=== PATIENT | female | born 1990 | race Caucasian/White ===

== ENCOUNTER → 2022-04-27 | Outpatient (CLI) | payer MEDICAID ==
[2022-04-27 10:30] LABS: HCT 37.2 % (37.2-46.3); HGB 12.7 g/dL (12.0-15.0); MCH 29.2 pg (27.0-32.0); MCHC 34.1 g/dL (32.0-37.0); MCV 85.5 fL (80.0-97.0); Mean Platelet Volume 10.1 fL (9.5-12.2); NRBC Per 100 WBC 0 /100 WBCS (0.0-0.0); Platelet Count 244 X 10*3/uL (140-440); RBC 4.35 X 10*6/uL (4.10-5.20); RDW 12.7 % (11.5-14.5); WBC 8.87 X 10*3/uL (4.50-10.00)
[2022-04-27 10:39] LABS: African American GFR (CKD) 142.8 (60.0-200.0); Non-African American GFR(CKD) 123.2 (60.0-200.0)
[2022-04-27 10:54] LABS: Hepatitis B Surface Antigen Nonreactive (Nonreactive)
[2022-04-27 13:06] LABS: HIV 2 AB Non-Reactive (Non-Reactive); HIV AB P24 Non-Reactive (Non-Reactive); HIV P24 AG Non-Reactive (Non-Reactive)
== END | disposition home or self-care (01) ==
LOC: LABWHC1 07:35
PROVIDERS: ATTEND Obstetrics & Gynecology
DX: Z34.81 Encounter for supervision of other normal pregnancy, first trimester (principal); Z3A.00 Weeks of gestation of pregnancy not specified
CPT/HCPCS: 36415; 82565; 82947; 85027; 86762; 86780; 86850; 86900; 86901; 87340; 87390

== ENCOUNTER → 2022-05-03 | Outpatient (CLI) | payer MEDICAID ==
--- NOTE | 2022-05-03 15:13 | US ---
EXAMINATION TYPE: Transabdominal DATE OF EXAM: 05/03/2022 2:34 PM COMPARISON: NONE CLINICAL HISTORY: Z36.89 Confirm dates/age/viability. Viability and dating. . EXAM PERFORMED: Transabdominal (TA) EXAM MEASUREMENTS: GESTATIONAL AGE / DATING Physician Established: Not yet established Dates by LMP: 01/28/22 (13 weeks/4 days) EDC: 11/04/22 Dates by First Scan: No previous this is first scan Dates by Current Scan for: (13 weeks/3 days) EDC: 11/05/22 MATERNAL ANATOMY Uterus: 11.2 x 10.4 x 7.8 cm Right Ovary: 3.6 x 2.6 x 2.6 cm Left Ovary: 2.7 x 2.3 x 1.7 cm Post CDS / Adnexa: WNL Presence of free fluid: No Presence of corpus luteal cyst: No Presence of subchorionic bleed: No GESTATION / SURVEY CRL: 7.3 cm (13 weeks/3 days) Heart Rate: 159 bpm Rhythm: Normal IUP: Viable IUP Age Appropriate Anatomy Limbs: Visualized Calvarium: Visualized Date of LMP: 01/28/22 Beta HcG (if available): Not available at this time IMPRESSION: Single viable intrauterine .
== END | disposition home or self-care (01) ==
LOC: RADUSWWP 14:02
PROVIDERS: ATTEND Obstetrics & Gynecology
DX: Z53.9 Procedure and treatment not carried out, unspecified reason (principal)
CPT/HCPCS: 76801

== ENCOUNTER 2023-11-28 13:51 | Outpatient (CLI) | payer OTHER ==
[2023-11-28 14:05] LABS: Glucose,Whole Blood 105 mg/dL (70-110)
[2023-11-28 15:32] VITALS: BP 109/74; PULSE 102; RESP 16; TEMP 97.6
--- NOTE | 2023-12-01 09:25 | P.MSEPDOC ---
Presenting Problems - Arrival Data Date of Arrival on Unit: 11/28/23 Time of Arrival on Unit: 13:51 Mode of Transport: Ambulatory - Complaint OB-Reason for Admission/Chief Complaint: Observation/Evaluation Comment: Pt reports to triage c\compliants of double vision x 1 minute, shaky, flushed approx 1 hour ago. Pt states she was sitting when this occured. Pt has ate today Medical History - Information : 8 Para: 3 Term: 3 Number of Living Children: 3 - Gestational Age Gestational Age by RADHA (wks/days): 33 Weeks and 0 Days Review of Systems - Review of Systems Constitutional: No problems Breast: No problems ENT: No problems Cardiovascular: No problems Respiratory: No problems Gastrointestinal: No problems Genitourinary: No problems Musculoskeletal: No problems Neurological: No problems Skin: No problems Vital Signs - Temperature Temperature: 97.6 F Temperature Source: Temporal Artery Scan - Pulse Right Sitting Brachial Pulse Rate: 102 Pulse Assessment Method: Pulse Oximetry - Respirations Respiratory Rate: 16 Oxygen Delivery Method: Room Air O2 Sat by Pulse Oximetry: 98 - Blood Pressure Right Arm Sitting Blood Pressure: 109/74 Blood Pressure Mean: 85 Blood Pressure Source: Automatic Cuff Physician Notification - Physician Notified Physician Notified Date: 11/28/23 Physician Notified Time: 14:40 Physician: Valeria Ladd - Notification Comment Comment: Spk c\Dr. Ladd, advsd , pt of [facility] in [place], 10/29, presents to triage c/o brief episode of double vision, shaky and flushed while sitting at work. Pt ate/drank lunch. Cat 1 FHT, no contrx. CBG 105. Had OB appt yesterday and again Monday. Order rec'd to d/c home. Should follow up c\EC if concerned about vision. Maternal Triage Index - Stat/Priority 1 Stat Priority 1: No - Urgent/Priority 2 Urgent Priority 2: No - Prompt/Priority 3 Prompt Priority 3: No - Non-Urgent/Priority 4 Non-Urgent Priority 4: Yes Criteria Met for Priority 4: Brief double vision Disposition - Disposition OB Disposition: Discharge to home, Written follow up instructions reviewed Discharge Date: 11/28/23 Discharge Time: 14:45 I agree with the RN Medical Screening Exam: Yes Case reviewed; plan agreed upon as documented in EMR&OBIX.: Yes Diagnosis: visual changes in
== END 2023-11-28 14:45 | disposition home or self-care (01) ==
LOC: FBPOP 13:51
PROVIDERS: ATTEND Obstetrics & Gynecology
DX: O99.891 Other specified diseases and conditions complicating pregnancy (principal); H53.8 Other visual disturbances; Z3A.33 33 weeks gestation of pregnancy
CPT/HCPCS: 59025; G0463; 99213